=== PATIENT | female | born 1970 | race African-American/Black ===

== ENCOUNTER 2024-08-14 23:35 | Emergency (ER) | payer MEDICAID, OTHER ==
[~2024-08-14] VITALS: Ht 165.1 cm; Wt 70.0 kg
[2024-08-14 23:44] VITALS: BP 153/77; PULSE 75; RESP 18; TEMP 98.8; O2SAT 98
[2024-08-15] MEDS ORDERED: DOXY100C5 MT ×2 (04:10→17:26)
[2024-08-15] MEDS ORDERED: CETI1TAB MT ×2 (04:10→17:26)
== END 2024-08-15 04:25 | disposition home or self-care (01) ==
LOC: ER 23:35
DX: J18.9 Pneumonia, unspecified organism (principal); J45.909 Unspecified asthma, uncomplicated; K21.9 Gastro-esophageal reflux disease without esophagitis; Z88.0 Allergy status to penicillin; Z88.5 Allergy status to narcotic agent; Z88.6 Allergy status to analgesic agent
CPT/HCPCS: 71045; 99283

== ENCOUNTER 2024-08-15 15:18 | Emergency (ER) | payer MEDICAID ==
[~2024-08-15] VITALS: Ht 167.6 cm; Wt 100.0 kg
[~2024-08-15 15:18] MED LIST: CETI1TAB MT; DOXY100C5 MT
[2024-08-15 15:33] VITALS: O2SAT 99
[2024-08-15 16:46] LABS: BASOPHILS % 0.3 % (0.0-2.0); EOSINOPHILS % 0.2 % (0.0-5.0); HEMATOCRIT. 36.6 % (36.0-48.0); HEMOGLOBIN. 11.4 g/dL (12.0-16.0); LYMPHOCYTES % 20.3 % (20.0-50.0); MEAN CORPUSCULAR HEMOGLOBIN 26.3 pg (28.0-32.0); MEAN CORPUSCULAR HGB CONC 31.2 g/dL (31.0-37.0); MEAN CORPUSCULAR VOLUME 84.5 fL (81.0-99.0); MONOCYTES % 6.6 % (2.0-8.0); NEUTROPHILS % 72.6 % (40.0-76.0); PLATELET 287 x1000/uL (130-400); RED BLOOD CELL COUNT 4.34 mill/uL (4.2-5.4); RED CELL DISTRIBUTION WIDTH 13.2 % (11.6-14.6); WHITE BLOOD COUNT 22.2 x1000/uL (4.5-11.0)
[2024-08-15 16:53] LABS: CHLORIDE 104 mEq/L (98-107); POTASSIUM 3.9 mEq/L (3.5-5.1); SODIUM 139 mEq/L (136-145)
[2024-08-15 16:54] LABS: CALCIUM 9.6 mg/dL (8.7-10.4); CARBON DIOXIDE 28 mEq/L (21-32)
[2024-08-15 16:59] LABS: CREATININE 0.7 mg/dL (0.6-1.0); GLUCOSE 91 mg/dL (70-105); UREA NITROGEN BLOOD 9 mg/dL (9-23)
[2024-08-15 17:08] LABS: TROPONIN I HIGH SENSITIVITY < 4 ng/L (3.0-34)
[2024-08-15] MEDS ORDERED: DOXY100C5 MT (17:26)
[2024-08-15] MEDS ORDERED: CETI1TAB MT (17:26)
[2024-08-15] MEDS: DOXYCYCLINE HYCLATE 100MG CAPSULE PO ONE (18:05)
[2024-08-15 18:06] VITALS: BP 141/76; PULSE 93; RESP 18; TEMP 37.16964; O2SAT 99
[2024-08-15] MEDS: CETIRIZINE 10MG TABLET PO SCH (18:21)
== END 2024-08-15 18:22 | disposition home or self-care (01) ==
LOC: ER 15:18
DX: J18.9 Pneumonia, unspecified organism (principal); K21.9 Gastro-esophageal reflux disease without esophagitis; J06.9 Acute upper respiratory infection, unspecified; J45.909 Unspecified asthma, uncomplicated; Z59.00 Homelessness unspecified; Z88.0 Allergy status to penicillin; Z88.5 Allergy status to narcotic agent; Z88.6 Allergy status to analgesic agent
CPT/HCPCS: 36415; 80048; 84484; 85025; 93005; 99284